=== PATIENT | female | born 1980 | race Caucasian/White ===

== ENCOUNTER → 2017-07-06 | Outpatient (REF) | payer OTHER ==
[~2017-07-06] MED LIST: ACET50TA PO; COLA100C5 PO; DHA100CA PO; DOCU100C PO; IBUP-1114 PO; IBUP200T2 PO; IBUP60TA PO; PERC5TAB12 PO; PERCOCET PO; PRENTAB66 PO; PRENTAB74 PO; TYLE325T5 PO; VITAPRTA PO
== END ==
LOC: M LAB REF 11:20
PROVIDERS: ATTEND Nurse Practitioner Family
DX: L30.9 Dermatitis, unspecified (principal)

== ENCOUNTER 2017-12-21 08:20 | Day surgery (SDC) | payer OTHER ==
[2017-12-21] MEDS ORDERED: LIDOCAINE 1% MDV 20ML VIAL SQ (08:30)
[2017-12-21] MEDS: LR 1,000 ML IV (09:03)
[2017-12-21 09:08] LABS: CONTROL LINE UCG INT CTR LINE PRESENT; URINE PREG TEST NEGATIVE (NEGATIVE)
[2017-12-21] MEDS ORDERED: ONDANSETRON 4MG/2ML VIAL (J2405) As Ordered (10:03)
[2017-12-21] MEDS ORDERED: MIDAZOLAM INJ 2 MG/2 ML VIAL (J2250) As Ordered (10:03)
[2017-12-21] MEDS ORDERED: ROCURONIUM BROMIDE 50 MG/5 ML VIAL As Ordered (10:03)
[2017-12-21] MEDS ORDERED: KETOROLAC 60 MG/2 ML VIAL (J1885) As Ordered (10:03)
[2017-12-21] MEDS ORDERED: PROPOFOL 200 MG/20 ML VIAL As Ordered (10:03)
[2017-12-21] MEDS ORDERED: dexameTHASONE 4 MG/ML 1ML VIAL (J1100) As Ordered (10:03)
[2017-12-21] MEDS ORDERED: LIDOCAINE 2% INJ 100 MG/5 ML SDV (FOR ANES.) As Ordered (10:03)
[2017-12-21] MEDS ORDERED: HYDROmorphone HCL 2 MG/ML 1ML VIAL (J1170) As Ordered (10:03)
[2017-12-21] MEDS ORDERED: NEOSTIGMINE 10 MG/10 ML VIAL (J2710) As Ordered (10:03)
[2017-12-21] MEDS ORDERED: GLYCOPYRROLATE INJ 0.2 MG/ML 2 ML VIAL As Ordered (10:03)
[2017-12-21] MEDS ORDERED: fentaNYL 100 MCG/2 ML INJECTION (J3010) As Ordered (10:04)
[2017-12-21] MEDS: BUPIVACAINE HCL 0.25% 30 ML VIAL As Ordered (13:07)
[2017-12-21] MEDS ORDERED: LR 1,000 ML IV (14:30)
[2017-12-21] MEDS ORDERED: fentaNYL 100 MCG/2 ML INJECTION (J3010) IV (14:30)
[2017-12-21] MEDS ORDERED: PERCOCET 5MG/325MG TAB PO (14:30)
[2017-12-21] MEDS ORDERED: MEPERIDINE INJ 25 MG/ML VIAL (J2175) IV (14:30)
[2017-12-21] MEDS: ONDANSETRON 4MG/2ML VIAL (J2405) IV (15:04)
[2017-12-21] MEDS: METOCLOPRAMIDE INJ 10MG/2ML VIAL (J2765) IV (15:08)
== END 2017-12-21 18:20 | disposition home or self-care (01) ==
LOC: M SDC 08:20
DX: K80.10 Calculus of gallbladder with chronic cholecystitis without obstruction (principal); F41.9 Anxiety disorder, unspecified; K21.9 Gastro-esophageal reflux disease without esophagitis; R21 Rash and other nonspecific skin eruption; J45.909 Unspecified asthma, uncomplicated; E66.9 Obesity, unspecified; Z68.39 Body mass index [BMI] 39.0-39.9, adult; Z91.048 Other nonmedicinal substance allergy status; Z86.59 Personal history of other mental and behavioral disorders
CPT/HCPCS: 47562

== ENCOUNTER → 2018-03-06 | Outpatient (REF) | payer OTHER ==
[2018-03-07 11:21] LABS: ALBUMIN 4.1 GM/DL (3.2-5.2); ALBUMIN/GLOBULIN RATIO 1.08 (1.00-1.93); ALKALINE PHOSPHATASE 102 U/L (45-117); ALT/SGPT 28 U/L (12-78); ANION GAP 7 MEQ/L (8-16); AST/SGOT 24 U/L (7-37); BILIRUBIN,DIRECT 0.1 MG/DL (0.0-0.2); BILIRUBIN,TOTAL 0.6 MG/DL (0.2-1.0); BLOOD UREA NITROGEN 13 MG/DL (7-18); CALCIUM LEVEL 9.3 MG/DL (8.5-10.1); CARBON DIOXIDE LEVEL 28 MEQ/L (21-32); CHLORIDE LEVEL 104 MEQ/L (98-107); CREATININE FOR GFR 0.69 MG/DL (0.55-1.30); GLOMERULAR FILTRATION RATE > 60.0 (>60); GLUCOSE, FASTING 76 MG/DL (70-100); PHOSPHORUS LEVEL 3.5 MG/DL (2.5-4.9); SODIUM LEVEL 139 MEQ/L (136-145); TOTAL PROTEIN 7.9 GM/DL (6.4-8.2)
[2018-03-07 14:05] LABS: HEMATOCRIT 38.8 % (36.0-47.0); HEMOGLOBIN 13.3 g/dl (12.0-15.5); MEAN CORPUSCULAR HEMOGLOBIN 29.1 pg (27.0-33.0); MEAN CORPUSCULAR HGB CONC 34.3 g/dl (32.0-36.5); MEAN CORPUSCULAR VOLUME 84.9 fl (80.0-96.0); PLATELET COUNT, AUTOMATED 282 10^3/uL (150-450); RED BLOOD COUNT 4.57 10^6/uL (4.00-5.40); RED CELL DISTRIBUTION WIDTH 13.2 % (11.5-14.5); WHITE BLOOD COUNT 9.8 10^3/uL (4.0-10.0)
== END ==
LOC: M LAB REF 10:21
DX: B35.1 Tinea unguium (principal); Z79.899 Other long term (current) drug therapy

== ENCOUNTER → 2018-03-06 | Outpatient (CLI) | payer OTHER | LOC: M LAB 13:17 | DX: Z51.81 Encounter for therapeutic drug level monitoring (principal); Z79.899 Other long term (current) drug therapy; B35.1 Tinea unguium ==

== ENCOUNTER → 2018-05-24 | Outpatient (CLI) | payer OTHER ==
[2018-05-24 13:51] LABS: PLATELET COUNT, AUTOMATED 289 10^3/uL (150-450); RED BLOOD COUNT 4.82 10^6/uL (4.00-5.40); RED CELL DISTRIBUTION WIDTH 12.5 % (11.5-14.5); WHITE BLOOD COUNT 7.4 10^3/uL (4.0-10.0)
[2018-05-24 14:24] LABS: ALBUMIN 4.1 GM/DL (3.2-5.2); ALBUMIN/GLOBULIN RATIO 1.14 (1.00-1.93); ALKALINE PHOSPHATASE 87 U/L (45-117); ALT/SGPT 38 U/L (12-78); ANION GAP 7 MEQ/L (8-16); AST/SGOT 20 U/L (7-37); BILIRUBIN,DIRECT 0.1 MG/DL (0.0-0.2); BILIRUBIN,TOTAL 0.4 MG/DL (0.2-1.0); BLOOD UREA NITROGEN 11 MG/DL (7-18); CALCIUM LEVEL 9.6 MG/DL (8.5-10.1); CARBON DIOXIDE LEVEL 29 MEQ/L (21-32); CHLORIDE LEVEL 105 MEQ/L (98-107); CREATININE FOR GFR 0.72 MG/DL (0.55-1.30); GLOMERULAR FILTRATION RATE > 60.0 (>60); GLUCOSE, FASTING 88 MG/DL (70-100); PHOSPHORUS LEVEL 3.9 MG/DL (2.5-4.9); POTASSIUM SERUM 4.2 MEQ/L (3.5-5.1); SODIUM LEVEL 141 MEQ/L (136-145); TOTAL PROTEIN 7.7 GM/DL (6.4-8.2)
== END ==
LOC: M LAB 13:08
DX: Z51.81 Encounter for therapeutic drug level monitoring (principal); Z79.899 Other long term (current) drug therapy; B35.1 Tinea unguium
CPT/HCPCS: 80076

== ENCOUNTER → 2018-07-30 | Outpatient (REF) | payer OTHER ==
[2018-07-30 23:38] LABS: FOLLICLE STIMULATING HORMONE 0.4 mIU/mL
[2018-07-30 23:38] LABS: LUTEINIZING HORMONE 7.3 mIU/mL; PROLACTIN 2.7 NG/ML
== END ==
LOC: M LAB REF 13:16
DX: N97.9 Female infertility, unspecified (principal)

== ENCOUNTER 2018-11-06 06:01 | Day surgery (SDC) | payer OTHER ==
[~2018-11-06] VITALS: Ht 162.6 cm; Wt 111.1 kg
[~2018-11-06 06:01] MED LIST changes: +HYDR-3713; +KETO2AER2; +NORCOTAB PO
[2018-11-06 06:29] LABS: HEMATOCRIT 38.9 % (36.0-47.0); HEMOGLOBIN 13.3 g/dl (12.0-15.5); MEAN CORPUSCULAR HEMOGLOBIN 28.5 pg (27.0-33.0); MEAN CORPUSCULAR HGB CONC 34.2 g/dl (32.0-36.5); MEAN CORPUSCULAR VOLUME 83.5 fl (80.0-96.0); PLATELET COUNT, AUTOMATED 297 10^3/uL (150-450); RED BLOOD COUNT 4.66 10^6/uL (4.00-5.40); WHITE BLOOD COUNT 6.2 10^3/uL (4.0-10.0)
[2018-11-06 06:51] LABS: URINE PREG TEST NEGATIVE (NEGATIVE)
[2018-11-06] MEDS ORDERED: BUPIVACAINE HCL 0.25% 30 ML VIAL As Ordered ONE (07:03)
[2018-11-06] MEDS ORDERED: OXYC1TAB23 PO (07:44)
[2018-11-06] MEDS ORDERED: PROPOFOL 200 MG/20 ML VIAL As Ordered ONE (07:53)
[2018-11-06] MEDS ORDERED: NEOSTIGMINE 10 MG/10 ML VIAL (J2710) As Ordered ONE (07:53)
[2018-11-06] MEDS ORDERED: ONDANSETRON 4MG/2ML VIAL (J2405) As Ordered ONE ×2 (07:53→10:11)
[2018-11-06] MEDS ORDERED: GLYCOPYRROLATE INJ 0.2 MG/ML 2 ML VIAL As Ordered ONE (07:53)
[2018-11-06] MEDS ORDERED: LIDOCAINE 2% INJ 100 MG/5 ML SDV (FOR ANES.) As Ordered ONE (07:53)
[2018-11-06] MEDS ORDERED: ROCURONIUM BROMIDE 50 MG/5 ML VIAL As Ordered ONE (07:53)
[2018-11-06] MEDS ORDERED: MIDAZOLAM INJ 2 MG/2 ML VIAL (J2250) As Ordered ONE (07:54)
[2018-11-06] MEDS ORDERED: fentaNYL 100 MCG/2 ML INJECTION (J3010) As Ordered ONE (07:54)
[2018-11-06] MEDS ORDERED: dexameTHASONE 4 MG/ML 1ML VIAL (J1100) As Ordered ONE (07:54)
[2018-11-06] MEDS ORDERED: MEPERIDINE INJ 25 MG/ML VIAL (J2175) As Ordered ONE (08:51)
[2018-11-06] MEDS ORDERED: PERCOCET 5MG/325MG TAB PO PRN ×2 (09:00)
[2018-11-06] MEDS ORDERED: LR 1,000 ML IV SCH ×2 (09:00)
[2018-11-06] MEDS ORDERED: MEPERIDINE INJ 25 MG/ML VIAL (J2175) IV PRN (09:00)
[2018-11-06] MEDS ORDERED: HYDROMORPHONE HCL 0.5 MG/ 0.5 ML SYRINGE (J1170 PER 1) IV PRN (09:00)
[2018-11-06] MEDS ORDERED: ONDANSETRON 4MG/2ML VIAL (J2405) IV PRN (09:00)
[2018-11-06] MEDS: fentaNYL 100 MCG/2 ML INJECTION (J3010) IV PRN ×4 (09:00→09:15)
[2018-11-06] MEDS: PERCOCET 5MG/325MG TAB PO PRN ×2 (09:14→11:45)
[2018-11-06 12:35] VITALS: BP 116/59
--- NOTE | 2018-11-06 13:43 | RO ---
DATE OF OPERATION: 11/06/2018 PREOPERATIVE DIAGNOSIS: Right ovarian dermoid cyst. POSTOPERATIVE DIAGNOSIS: Right ovarian dermoid cyst. PROCEDURE: Laparoscopic right salpingo-oophorectomy. SURGEON: Thanh Cruz MD BOX OFFICE CLERK: Constance Croft MD ANESTHESIA: General endotracheal. ESTIMATED BLOOD LOSS: Minimal. URINE OUTPUT: 200 mL. FINDINGS: A 7-8 cm dermoid cyst of the right ovary, normal-appearing left ovary, fallopian tube, normal-appearing uterus. DESCRIPTION OF PROCEDURE: Operative summary: The patient was taken to the operating room, where general endotracheal anesthesia was induced. She was prepped and draped in a sterile fashion in the dorsal lithotomy position. A Kilpatrick catheter was placed. A Hulka uterine tenaculum was placed. A periumbilical incision was made with a scalpel. A Veress needle was placed through this incision while tenting up on the skin of the abdomen. Intra-abdominal location of the Veress needle was assessed with the use of a saline-filled syringe. A pneumoperitoneum was created. The Veress needle was removed. An 11-mm trocar using The Athlete Empireort was inserted through this incision. A 10-mm scope with camera was used to visualize the abdomen and pelvis. Two 5-mm suprapubic ports were placed under direct visualization. The right ovarian dermoid was elevated, and a LigaSure device was used to coagulate and incise the infundibulopelvic (IP) ligament. Subsequent broad ligament attachments and fallopian tube were coagulated and incised. The specimen was removed intact. Good hemostasis was noted. The specimen was placed in an Endo Catch bag and withdrawn through the umbilical incision. The incision had to be extended slightly, and the specimen was drained externally to allow removal. The fascia of the umbilical incision was closed with 2-0 Vicryl in a running fashion. The skin was closed with 4-0 Monocryl subcuticular sutures. All instruments removed. Sponge, needle, and instrument counts were correct. Constance Croft MD, assisted with all aspects of the procedure from beginning to end. He assisted with inserting the ports and manipulating the specimen. He then assisted with removal of the specimen and closure of ports. [facility]
== END 2018-11-06 12:40 | disposition home or self-care (01) ==
LOC: M SDC 06:01
PROVIDERS: ATTEND Specialist
DX: D27.0 Benign neoplasm of right ovary (principal); F41.9 Anxiety disorder, unspecified; R21 Rash and other nonspecific skin eruption; Z87.891 Personal history of nicotine dependence; Z91.048 Other nonmedicinal substance allergy status
CPT/HCPCS: 36415; 58661; 84703; 85027; 88307; J1100; J2175; J2250; J2405; J2710; J3010

== ENCOUNTER → 2018-11-14 | Outpatient (CLI) | payer OTHER ==
[~2018-11-14] MED LIST changes: +OXYC1TAB23 PO
[2018-11-14 18:16] LABS: FOLLICLE STIMULATING HORMONE 5.9 mIU/mL; LUTEINIZING HORMONE 6.2 mIU/mL
== END ==
LOC: M SMT 13:35
PROVIDERS: ATTEND Specialist
DX: N91.1 Secondary amenorrhea (principal)

== ENCOUNTER 2019-01-15 08:25 | Day surgery (SDC) | payer OTHER ==
[2019-01-15] VITALS (8 sets, daily range): BP systolic 91–125; BP diastolic 51–76
[~2019-01-15] VITALS: Ht 162.6 cm; Wt 100.2 kg
[~2019-01-15 08:25] MED LIST changes: -ACET50TA PO; +HYDR-3715 PO; +IBUP600T42 PO; -IBUP60TA PO; +LR 1,000 ML IV ONE; +MAPA500T17 PO; -NORCOTAB PO; -PERCOCET PO; +TERB250T12 PO
[2019-01-15 08:47] LABS: HEMATOCRIT 39.5 % (36.0-47.0); HEMOGLOBIN 13.4 g/dl (12.0-15.5); MEAN CORPUSCULAR HEMOGLOBIN 28.2 pg (27.0-33.0); MEAN CORPUSCULAR HGB CONC 33.9 g/dl (32.0-36.5); MEAN CORPUSCULAR VOLUME 83.2 fl (80.0-96.0); PLATELET COUNT, AUTOMATED 305 10^3/uL (150-450); RED BLOOD COUNT 4.75 10^6/uL (4.00-5.40); WHITE BLOOD COUNT 6.4 10^3/uL (4.0-10.0)
[2019-01-15] MEDS ORDERED: SCOPOLAMINE 1MG TRANSDERMAL PATCH As Ordered ONE (08:57)
[2019-01-15 08:59] LABS: URINE PREG TEST NEGATIVE (NEGATIVE)
[2019-01-15] MEDS ORDERED: VENTAER INH (09:07)
[2019-01-15] MEDS ORDERED: SCOPOLAMINE 1MG TRANSDERMAL PATCH TOP ONE (09:15)
[2019-01-15] MEDS ORDERED: BUPIVACAINE HCL 0.25% 10 ML VIAL As Ordered ONE (09:31)
[2019-01-15] MEDS ORDERED: METHYLENE BLUE 0.5% (5MG/ML) 10 ML AMP (PROVAYBLUE)(Q9968 PER 1MG) As Ordered ONE (09:32)
[2019-01-15] MEDS ORDERED: OXYC1TAB23 PO (09:33)
[2019-01-15] MEDS ORDERED: IBUP-1022 PO (09:34)
[2019-01-15] MEDS ORDERED: SUGAMMADEX SODIUM 500 MG/5 ML VIAL (BRIDION) As Ordered ONE (10:15)
[2019-01-15] MEDS ORDERED: KETOROLAC 60 MG/2 ML VIAL (J1885) As Ordered ONE (10:15)
[2019-01-15] MEDS ORDERED: PROPOFOL 200 MG/20 ML VIAL As Ordered ONE (10:15)
[2019-01-15] MEDS ORDERED: MIDAZOLAM INJ 2 MG/2 ML VIAL (J2250) As Ordered ONE (10:15)
[2019-01-15] MEDS ORDERED: fentaNYL 250 MCG/5 ML INJECTION (J3010) As Ordered ONE (10:15)
[2019-01-15] MEDS ORDERED: ROCURONIUM BROMIDE 50 MG/5 ML VIAL As Ordered ONE (10:15)
[2019-01-15] MEDS ORDERED: LIDOCAINE 2% INJ 100 MG/5 ML SDV (FOR ANES.) As Ordered ONE (10:15)
[2019-01-15] MEDS ORDERED: METOCLOPRAMIDE INJ 10MG/2ML VIAL (J2765) As Ordered ONE (10:15)
[2019-01-15] MEDS ORDERED: dexameTHASONE 4 MG/ML 1ML VIAL (J1100) As Ordered ONE (10:15)
[2019-01-15] MEDS ORDERED: ONDANSETRON 4MG/2ML VIAL (J2405) As Ordered ONE (10:15)
[2019-01-15] MEDS ORDERED: HYDROmorphone HCL 2 MG/ML 1ML VIAL (J1170) As Ordered ONE (10:21)
[2019-01-15] MEDS ORDERED: ONDANSETRON 4MG/2ML VIAL (J2405) IV PRN ×2 (11:45)
[2019-01-15] MEDS ORDERED: PERCOCET 5MG/325MG TAB PO PRN ×3 (11:45)
[2019-01-15] MEDS ORDERED: fentaNYL 100 MCG/2 ML INJECTION (J3010) IV PRN (11:45)
[2019-01-15] MEDS ORDERED: MORPHINE 4 MG/ML 1ML VIAL/SYRINGE (J2270) IV PRN (11:45)
[2019-01-15] MEDS ORDERED: LR 1,000 ML IV SCH ×2 (11:45)
[2019-01-15] MEDS: DOCUSATE SODIUM 100 MG CAP PO SCH ×2 (13:40→21:42)
--- NOTE | 2019-01-15 15:27 | RO ---
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 PROCEDURE: Robotic-assisted laparoscopic hysterectomy. Left salpingo-oophorectomy. SURGEON: Dr. Thanh Cruz. CLINICAL NURSING PROFESSOR: Cherrie Merrill NP. ANESTHESIA: General endotracheal. ESTIMATED BLOOD LOSS: 150 mL. FINDINGS: Surgically absent right ovary and fallopian tube. Normal uterus, left fallopian tube and ovary. DESCRIPTION OF PROCEDURE: Patient taken to the operating room where general endotracheal anesthesia was induced. She was prepped and draped in a sterile fashion in the dorsal lithotomy position. Kilpatrick catheter was placed. A Vcare uterine manipulator was placed. Periumbilical incision was made with a scalpel. Veress needle was placed through the incision while tenting up on the skin of the abdomen. Intra-abdominal location of the Veress needle was assessed using saline-filled syringe. Pneumoperitoneum was created. An 8 mm trocar using Visiport was inserted. Three 8 mm suprapubic ports were placed under direct visualization. Patient was placed in Trendelenburg position. The da Mary surgical robot was docked to the ports. Using the fenestrated bipolar instrument and vessel sealer, the left infundibulopelvic (IP) ligament, broad ligament attachments and round ligament were coagulated and incised. The anterior and posterior limbs of the broad ligament were . Bladder flap was created. The uterine vessels were coagulated and incised bilaterally. Using the monopolar endoshears, a colpotomy was created in the upper vagina at the level of the Vcare cup. This was extended circumferentially around the vagina. Specimens including the uterus, cervix, left fallopian tube and left ovary were removed through the vagina. The vaginal cuff was closed with #1 V-Loc suture in a running fashion. The pelvis was copiously irrigated and good hemostasis noted. The patient received methane-blue dye intravenously. Cystoscopy was performed using a 70-degree cystoscope. Bilateral ureteral jets were identified. There was no evidence of injury to the bladder. All ports were removed and the skin was closed with #4-0 Monocryl subcuticular sutures. Sponge, instrument and needle counts were correct. Cherrie Merrill NP assisted on all aspects of the procedure from beginning to end. She assisted with positioning the patient, inserting the ports and manipulated the uterus throughout the procedure. Removed the specimen at the end of the procedure, essentially helped remove all ports and closed all incisions.
[2019-01-16] VITALS: BP 117/59
[2019-01-16 04:00] VITALS: BP 99/57
[2019-01-16 08:00] VITALS: BP 133/70
[2019-01-16] MEDS: DOCUSATE SODIUM 100 MG CAP PO SCH (09:00)
== END 2019-01-16 09:00 | disposition home or self-care (01) ==
LOC: M SDC 08:25 → M PED 12:33 → M SDC 01-16 09:00
PROVIDERS: ATTEND Specialist
DX: N83.02 Follicular cyst of left ovary (principal); N72 Inflammatory disease of cervix uteri; F41.9 Anxiety disorder, unspecified; J45.909 Unspecified asthma, uncomplicated; Z79.899 Other long term (current) drug therapy
CPT/HCPCS: 36415; 58571; 84703; 85027; 86850; 86900; 86901; 88307; 96360; 96361; J0690; J1100; J1170; J1885; J2250; J2405; J2765; J3010; Q9968

== ENCOUNTER → 2019-01-30 | Outpatient (REF) | payer OTHER ==
[~2019-01-30] MED LIST changes: +IBUP-1022 PO; -LR 1,000 ML IV ONE; +VENTAER INH
== END ==
LOC: M LAB REF 13:18
PROVIDERS: ATTEND Specialist
DX: R30.0 Dysuria (principal)

== ENCOUNTER → 2019-10-24 | Outpatient (CLI) | payer OTHER ==
[2019-10-24 13:56] LABS: BLOOD UREA NITROGEN 18 MG/DL (7-18); CALCIUM LEVEL 9.6 MG/DL (8.5-10.1); CARBON DIOXIDE LEVEL 27 MEQ/L (21-32); CHLORIDE LEVEL 102 MEQ/L (98-107); CREATININE FOR GFR 0.71 MG/DL (0.55-1.30); GLOMERULAR FILTRATION RATE > 60.0 (>60); GLUCOSE, FASTING 90 MG/DL (70-100); POTASSIUM SERUM 3.9 MEQ/L (3.5-5.1); SODIUM LEVEL 139 MEQ/L (136-145)
== END ==
LOC: M LAB 12:56
DX: B35.4 Tinea corporis (principal)

== ENCOUNTER → 2021-06-28 | Outpatient (CLI) | payer OTHER ==
--- NOTE | 2021-06-28 11:04 | REP ---
INDICATION: PING SCR MAMMO/Z12.31. COMPARISON: This is the patient's baseline mammogram. TECHNIQUE: Digital screening (2D) mammography was performed bilaterally in the CC and MLO projections. Additionally, breast tomosynthesis (3D mammography) was performed bilaterally in the CC and MLO projections. FINDINGS: The patient is a 40-year-old with no personal history of breast cancer. However, the patient does have a personal history of ovarian cancer. Patient has a family history of breast cancer in 2 grandmothers. The Volpara volumetric breast density pattern is B, there are scattered areas of fibroglandular density. In the middle 3rd of the right breast, above and lateral to the nipple, in the upper outer quadrant, there is an oval, circumscribed isodense mass measuring 6 mm in diameter.. In the anterior 3rd of the left breast, above and lateral to the nipple, in the upper outer quadrant, there is an area of architectural distortion. IMPRESSION: BIRADS/ACR category 0: Incomplete, need additional imaging evaluation. This patient's Tyrer-Cuzick lifetime breast cancer risk assessment score is 23.0%. This mammogram was interpreted with the aid of an FDA-approved computer-aided detection system. The patient states she had a clinical breast exam in April 2021.. The patient letter being requested is M0. RECOMMENDATION: 2D focal compression with magnification of the right breast in the CC and MLO orientations. Right breast ultrasound. 2D focal compression of the left breast in the CC and true lateral orientations. Left breast ultrasound. Due to the patient's Anthony Carla score of greater than 20%, routine screening whole breast ultrasound/MRI is warranted. <Electronically signed by Keith Colorado > 06/28/21 1100
== END ==
LOC: M WHC 08:14
PROVIDERS: ATTEND Internal Medicine
DX: Z12.31 Encounter for screening mammogram for malignant neoplasm of breast (principal); Z80.3 Family history of malignant neoplasm of breast; Z85.43 Personal history of malignant neoplasm of ovary; N63.11 Unspecified lump in the right breast, upper outer quadrant

== ENCOUNTER → 2021-07-09 | Outpatient (REF) | payer OTHER ==
[~2021-07-09] MED LIST changes: +BUSP15TA47 PO; +ESCI5SOL3 PO
== END ==
LOC: M LAB REF 06:45
PROVIDERS: ATTEND Internal Medicine Gastroenterology
DX: R19.7 Diarrhea, unspecified (principal)

== ENCOUNTER → 2021-07-11 | Outpatient (CLI) | payer OTHER | LOC: M LABSMTC 09:59 | PROVIDERS: ATTEND Anesthesiology | DX: Z01.812 Encounter for preprocedural laboratory examination (principal); Z20.822 Contact with and (suspected) exposure to COVID-19 ==

== ENCOUNTER 2021-07-15 10:20 | Day surgery (SDC) | payer OTHER ==
[~2021-07-15] VITALS: Ht 162.6 cm; Wt 104.3 kg
[~2021-07-15 10:20] MED LIST changes: +NS 1,000 ML IV ONE
[2021-07-15] MEDS ORDERED: propofoL 200 MG/20 ML VIAL As Ordered ONE ×2 (10:37→12:25)
[2021-07-15] MEDS ORDERED: fentaNYL 100 MCG/2 ML INJECTION (J3010) As Ordered ONE (10:37)
[2021-07-15] MEDS ORDERED: LIDOCAINE 2% 100MG/5ML SDV (FOR ANES.) As Ordered ONE (10:37)
--- NOTE | 2021-07-15 12:40 | ROOR ---
Patient Name: Sultana Sullivan Procedure Date: 07/15/2021 11:58 AM Date of : 1980 Age: 40 Room: [facility] Gender: Female Note Status: Finalized Procedure: Upper GI endoscopy Indications: Epigastric abdominal pain, Weight loss Providers: Clarence Moss MD Referring MD: Sheela DICKEY MD Requesting Provider: Medicines: Monitored Anesthesia Care Complications: No immediate complications. Procedure: Pre-Anesthesia Assessment: - Prior to the procedure, a History and Physical was performed, and patient medications and allergies were reviewed. The patient is competent. The risks and benefits of the procedure and the sedation options and risks were discussed with the patient. All questions were answered and informed consent was obtained. Patient identification and proposed procedure were verified by the physician, the nurse and the anesthesiologist in the procedure room. Mental Status Examination: alert and oriented. Airway Examination: normal oropharyngeal airway and neck mobility. Respiratory Examination: clear to auscultation. CV Examination: normal. Prophylactic Antibiotics: The patient does not require prophylactic antibiotics. Prior Anticoagulants: The patient has taken no previous anticoagulant or antiplatelet agents. ASA Grade Assessment: II - A patient with mild systemic disease. After reviewing the risks and benefits, the patient was deemed in satisfactory condition to undergo the procedure. The anesthesia plan was to use monitored anesthesia care (MAC). Immediately prior to administration of medications, the patient was re-assessed for adequacy to receive sedatives. The heart rate, respiratory rate, oxygen saturations, blood pressure, adequacy of pulmonary ventilation, and response to care were monitored throughout the procedure. The physical status of the patient was re-assessed after the procedure. The Endoscope was introduced through the mouth, and advanced to the second part of duodenum. The upper GI endoscopy was accomplished without difficulty. The patient tolerated the procedure well. Findings: The examined esophagus was normal. The Z-line was regular and was found at the gastroesophageal junction. Scattered mild inflammation characterized by congestion (edema), erythema and granularity was found in the gastric body and in the gastric antrum. Biopsies were taken with a cold forceps for Helicobacter pylori testing. Verification of patient identification for the specimen was done by the physician and nurse using the patient's name, date and medical record number. A single localized erosion without bleeding was found in the duodenal bulb. Normal mucosa was found in the second portion of the duodenum and in the third portion of the duodenum. Impression: - Normal esophagus. - Z-line regular, at the gastroesophageal junction. - Gastritis. Biopsied. - Duodenal erosion without bleeding. - Normal mucosa was found in the second portion of the duodenum and in the third portion of the duodenum. Recommendation: - Patient has a contact number available for emergencies. The signs and symptoms of potential delayed complications were discussed with the patient. Return to normal activities tomorrow. Written discharge instructions were provided to the patient. - High fiber diet. - Continue present medications. - Await pathology results. 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 - If Biopsy shows H. pylori positive, then you will need therapy with antibiotic course.. - Return to GI clinic if persistent symptoms or new symptoms. - Return to primary care physician. Procedure Code(s): --- Professional --- 47464, Esophagogastroduodenoscopy, flexible, transoral; with biopsy, single or multiple Diagnosis Code(s): --- Professional --- K29.70, Gastritis, unspecified, without bleeding K26.9, Duodenal ulcer, unspecified as acute or chronic, without hemorrhage or perforation R10.13, Epigastric pain R63.4, Abnormal weight loss CPT copyright 2019 [employer]. All rights reserved. The codes documented in this report are preliminary and upon supervisor boat outfitting review may be revised to meet current compliance requirements. Clarence Moss MD Clarence Moss MD 07/15/2021 12:39:49 PM Electronically signed by Clarence Moss MD Number of Addenda: 0 Note Initiated On: 07/15/2021 11:58 AM Estimated Blood Loss: Estimated blood loss was minimal.
--- NOTE | 2021-07-15 12:50 | ROOR ---
Patient Name: Sultana Sullivan Procedure Date: 07/15/2021 11:59 AM Date of : 1980 Age: 40 Room: [facility] Gender: Female Note Status: Finalized Procedure: Colonoscopy Indications: Chronic diarrhea, Weight loss Providers: Clarence Moss MD Referring MD: Sheela DICKEY MD Requesting Provider: Medicines: Monitored Anesthesia Care Complications: No immediate complications. Procedure: Pre-Anesthesia Assessment: - Prior to the procedure, a History and Physical was performed, and patient medications and allergies were reviewed. The patient is competent. The risks and benefits of the procedure and the sedation options and risks were discussed with the patient. All questions were answered and informed consent was obtained. Patient identification and proposed procedure were verified by the physician, the nurse and the anesthesiologist in the procedure room. Mental Status Examination: alert and oriented. Airway Examination: normal oropharyngeal airway and neck mobility. Respiratory Examination: clear to auscultation. CV Examination: normal. Prophylactic Antibiotics: The patient does not require prophylactic antibiotics. Prior Anticoagulants: The patient has taken no previous anticoagulant or antiplatelet agents. ASA Grade Assessment: II - A patient with mild systemic disease. After reviewing the risks and benefits, the patient was deemed in satisfactory condition to undergo the procedure. The anesthesia plan was to use monitored anesthesia care (MAC). Immediately prior to administration of medications, the patient was re-assessed for adequacy to receive sedatives. The heart rate, respiratory rate, oxygen saturations, blood pressure, adequacy of pulmonary ventilation, and response to care were monitored throughout the procedure. The physical status of the patient was re-assessed after the procedure. The Colonoscope was introduced through the anus and advanced to the terminal ileum, with identification of the appendiceal orifice and IC valve. The colonoscopy was performed without difficulty. The patient tolerated the procedure well. The quality of the bowel preparation was good. The terminal ileum, ileocecal valve, appendiceal orifice, and rectum were photographed. Scope insertion time was 2 minutes. Scope withdrawal time was 9 minutes. The total duration of the procedure was 12 minutes. Findings: The perianal and digital rectal examinations were normal. The terminal ileum appeared normal. Non-bleeding external and internal hemorrhoids were found during retroflexion. The hemorrhoids were medium-sized. Normal mucosa was found in the entire colon. Biopsies for histology were taken with a cold forceps from the right colon, left colon and rectosigmoid colon for evaluation of microscopic colitis. Verification of patient identification for the specimen was done by the physician and nurse using the patient's name, date and medical record number. Estimated blood loss was minimal. Impression: - The examined portion of the ileum was normal. - Non-bleeding external and internal hemorrhoids. - Normal mucosa in the entire examined colon. Biopsied. Recommendation: - Patient has a contact number available for emergencies. The signs and symptoms of potential delayed complications were discussed with the patient. Return to normal activities tomorrow. Written discharge instructions were provided to the patient. - High fiber diet. - Continue present medications. - Use fiber, for example Citrucel, Fibercon, Konsyl or Metamucil. - Repeat colonoscopy at age 50 for screening purposes. - Telephone GI clinic for pathology results in 2 weeks. - Return to GI clinic if persistent symptoms or new symptoms. - Return to primary care physician. Procedure Code(s): --- Professional --- 46227, Colonoscopy, flexible; with biopsy, single or multiple Diagnosis Code(s): --- Professional --- K64.8, Other hemorrhoids K52.9, Noninfective gastroenteritis and colitis, unspecified R63.4, Abnormal weight loss CPT copyright 2019 [employer]. All rights reserved. The codes documented in this report are preliminary and upon plate cleaner review may be revised to meet current compliance requirements. Clarence Moss MD Clarence Moss MD 07/15/2021 12:49:38 PM Electronically signed by Clarence Moss MD Number of Addenda: 0 Note Initiated On: 07/15/2021 11:59 AM Estimated Blood Loss: Estimated blood loss was minimal.
[2021-07-15 13:05] VITALS: BP 143/85
== END 2021-07-15 13:19 | disposition home or self-care (01) ==
LOC: M OPP 10:20
PROVIDERS: ATTEND Internal Medicine Gastroenterology
DX: K52.9 Noninfective gastroenteritis and colitis, unspecified (principal); K64.8 Other hemorrhoids; R63.4 Abnormal weight loss; K29.70 Gastritis, unspecified, without bleeding; R26.9 Unspecified abnormalities of gait and mobility; R10.13 Epigastric pain; Z79.899 Other long term (current) drug therapy; Z91.048 Other nonmedicinal substance allergy status
CPT/HCPCS: 43239; 45380; 88305; J3010

== ENCOUNTER → 2021-07-19 | Outpatient (CLI) | payer OTHER ==
[~2021-07-19] MED LIST changes: -NS 1,000 ML IV ONE; -TERB250T12 PO; +TERB250T91 PO
--- NOTE | 2021-07-19 16:37 | REP ---
INDICATION: BILATERAL ADD VIEWS. COMPARISON: 06/28/2021. TECHNIQUE: Multiple spot compression views performed bilaterally as well as additional tomographic sequences of the right breast in the mL and CC projections. Focused bilateral breast ultrasound performed. FINDINGS: The suspected subcentimeter nodular opacity in the upper-outer quadrant of the right breast is not visualized on additional imaging. The suspected architectural distortion in the upper quadrant of the left breast does not persist on additional imaging. Focused bilateral breast ultrasound is performed. No cystic or solid nodule is seen in the upper outer quadrant of either breast. IMPRESSION: BIRADS/ACR category 1, negative. No persistent mammographic or sonographic abnormality is seen bilaterally. This mammogram was interpreted with the aid of an FDA-approved computer-aided detection system. The patient letter being requested is M1. RECOMMENDATION: Repeat screening mammography recommended 1 year (for women over 40). <Electronically signed by Hernando Hilton > 07/19/21 2622
== END ==
LOC: M WHC 14:06
PROVIDERS: ATTEND Internal Medicine
DX: R92.2 Inconclusive mammogram (principal)
CPT/HCPCS: 76642; 77066; G0279

== ENCOUNTER → 2021-12-05 | Outpatient (CLI) | payer OTHER | LOC: M RAD 09:37 | PROVIDERS: ATTEND Specialist | DX: Z85.43 Personal history of malignant neoplasm of ovary (principal) ==

== ENCOUNTER → 2022-01-17 | Outpatient (REF) | payer OTHER | LOC: M LAB REF 11:12 | PROVIDERS: ATTEND Internal Medicine | DX: R19.7 Diarrhea, unspecified (principal) ==

== ENCOUNTER → 2022-08-18 | Outpatient (REF) | payer OTHER | LOC: M LAB REF 13:10 | PROVIDERS: ATTEND Internal Medicine | DX: R19.7 Diarrhea, unspecified (principal) ==

== ENCOUNTER → 2024-07-23 | Outpatient (REF) | payer OTHER | LOC: M LAB REF 16:30 | PROVIDERS: ATTEND Internal Medicine | DX: G62.9 Polyneuropathy, unspecified (principal) ==

== ENCOUNTER → 2025-05-08 | Outpatient (CLI) | payer OTHER | LOC: M RAD 10:38 | PROVIDERS: ATTEND Specialist | DX: Z53.9 Procedure and treatment not carried out, unspecified reason (principal) ==

== ENCOUNTER → 2025-07-14 | Outpatient (CLI) | payer OTHER ==
[~2025-07-14] MED LIST changes: -IBUP-1022 PO
== END ==
LOC: M WUC 09:25
PROVIDERS: ATTEND Physician Assistant Medical
DX: M25.571 Pain in right ankle and joints of right foot (principal); M79.671 Pain in right foot

== ENCOUNTER → 2025-08-19 | Outpatient (CLI) | payer OTHER | LOC: M CARPUL 13:40 | PROVIDERS: ATTEND Internal Medicine | DX: R01.1 Cardiac murmur, unspecified (principal); I34.0 Nonrheumatic mitral (valve) insufficiency; I36.1 Nonrheumatic tricuspid (valve) insufficiency ==